=== PATIENT | female | born 1960 | race Hispanic/Latino ===

== ENCOUNTER 2022-03-31 09:48 | Emergency (ER) | payer OTHER ==
[~2022-03-31] VITALS: Ht 152.4 cm; Wt 61.2 kg
[2022-03-31 09:55] VITALS: BP 147/71
[2022-03-31 10:00] VITALS: BP 130/77
[2022-03-31 10:15] VITALS: BP 137/69
[2022-03-31] MEDS ORDERED: VOLTAREN1%GEL TOP (11:12)
[2022-03-31 11:17] VITALS: BP 137/69
== END 2022-03-31 11:27 | disposition home or self-care (01) | DRG 556 ==
LOC: ED 09:48
DX: M25.561 Pain in right knee (principal); M54.2 Cervicalgia; M54.6 Pain in thoracic spine; Y04.2XXA Assault by strike against or bumped into by another person, initial encounter